=== PATIENT | female | born 1960 | race Two or more races ===

== ENCOUNTER 2019-04-15 09:00 | Outpatient (CLI) | payer MEDICAID ==
[~2019-04-15] VITALS: Ht 167.6 cm; Wt 85.7 kg
[2019-04-15] MEDS ORDERED: METFORMIN HCL1000 M1 ORAL (12:40)
[2019-04-15] MEDS ORDERED: VENTOLIN HFA18 GM INH (12:40)
[2019-04-15] MEDS ORDERED: ATORVASTATIN CA20 MG ORAL (12:40)
[2019-04-15] MEDS ORDERED: HYDROCHLOROTHIA25 MG ORAL (12:40)
[2019-04-15] MEDS ORDERED: NAPROXEN500 M2 ORAL (12:40)
[2019-04-15] MEDS ORDERED: LISINOPRIL20 MG ORAL (12:40)
[2019-04-15 12:41] VITALS: BP 140/89
== END 2019-04-15 12:57 | disposition home or self-care (01) ==
LOC: PAN 09:00
DX: R10.9 Unspecified abdominal pain (principal)
CPT/HCPCS: G0463